=== PATIENT | female | born 1960 | race Caucasian/White ===

== ENCOUNTER 2022-06-10 13:49 | Emergency (ER) | payer MEDICARE ==
[2022-06-10] MEDS ORDERED: MORPHINE SULFATE 4 MG INJ IM ONE (14:27)
[2022-06-10] MEDS ORDERED: MORPHINE SULFATE 4 MG INJ ONE (14:32)
[2022-06-10 15:02] VITALS: BP 112/53; PULSE 74; O2SAT 99
--- NOTE | 2022-06-10 15:02 | XRAY ---
Indication: Pain. No known injury. Comparison: None 3 nonweightbearing views right foot demonstrates tiny plantar heel spur and tiny cuboid accessory ossicle. No other bony, articular, or soft tissue abnormalities.
--- NOTE | 2022-06-10 15:24 | ERPHSYRPT ---
- History of Present Illness Time Seen by Provider: 06/10/22 14:08 Source: patient Exam Limitations: no limitations Patient Subjective Stated Complaint: pt here for right foot pain for a couple days now, no injury, has neuropathy Triage Nursing Assessment: pt alert, resp easy, face mask in place, walked in, skin w.d.p, has swelling to top of right foot , no redness or warmth, nail beds pink Physician History: 61 years old female with multiple medical problems including diabetes mellitus with neuropathy, history of PE on Eliquis, anxiety, bipolar presented in the ER with chief complaint of right foot pain. Patient reports this as sharp burning pain which is exacerbated with movements and even touching with the sheets/use and at times having difficulty weightbearing as well. Denies any fall or trauma. Patient reported seems like right foot is swollen than the left 1. No fever or chills reported. Method of Injury: unknown Occurred: last week Quality: sharpness Severity of Pain-Max: severe Severity of Pain-Current: severe Lower Extremities Pain: foot: right Modifying Factors: Improves With: pain medication. Worsens With: movement Associated Symptoms: No snapping sensation, No popping sensation Allergies/Adverse Reactions: acetaminophen [From Darvocet-N 100] Allergy (Verified 06/10/22 13:58) propoxyphene [From Darvocet-N 100] Allergy (Verified 06/10/22 13:58) aspirin [From Excedrin Extra Strength] Adverse Reaction (Verified 06/10/22 13:58) caffeine [From Excedrin Extra Strength] Adverse Reaction (Verified 06/10/22 13:58) dextromethorphan [From NyQuil] Adverse Reaction (Verified 06/10/22 13:58) doxylamine [From NyQuil] Adverse Reaction (Verified 06/10/22 13:58) pseudoephedrine [From NyQuil] Adverse Reaction (Verified 06/10/22 13:58) Hx Tetanus, Diphtheria Vaccination/Date Given: No Hx Influenza Vaccination/Date Given: No Hx Pneumococcal Vaccination/Date Given: No Immunizations Up to Date: Yes Travel Risk - International Travel Have you traveled outside of the country in past 3 weeks: No - Coronavirus Screening Are you exhibiting any of the following symptoms?: No - Vaccine Status Have you recieved a Covid-19 vaccination: Yes 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: [employer] - Vaccination Dates Dates if Unknown: 2020 - Review of Systems Constitutional: Night Sweats Ears, Nose, & Throat: No Symptoms Respiratory: No Symptoms Cardiac: No Symptoms Genitourinary Symptoms: No Symptoms Musculoskeletal: Joint Pain Skin: No Symptoms Neurological: No Symptoms Psychological: No Symptoms Endocrine: No Symptoms Hematologic/Lymphatic: No Symptoms Immunological/Allergic: No Symptoms - Past Medical History Pertinent Past Medical History: Yes Neurological History: Peripheral Neuropathy, Other Endocrine Medical History: Diabetes Type II Musculoskeletal History: Degenerative Disk Disease Psycho-Social History: Bipolar Other Medical History: vertigo - Past Surgical History Past Surgical History: Yes Female Surgical History: Hysterectomy Other Surgical History: spinal cord stimulator - Social History Smoking Status: Never smoker Exposure to second hand smoke: No Drug Use: none Patient Lives Alone: No - Nursing Vital Signs Nursing Vital Signs: Initial Vital Signs Temperature 97.0 F 06/10/22 13:51 Pulse Rate 90 06/10/22 13:51 Respiratory Rate 18 06/10/22 13:51 Blood Pressure 123/74 06/10/22 13:51 O2 Sat by Pulse Oximetry 97 06/10/22 13:51 Pain Scale Pain Intensity 5 - Physical Exam General Appearance: no apparent distress, alert Neck Exam: normal inspection, full range of motion Cardiovascular/Respiratory Exam: normal breath sounds, regular rate/rhythm Back Exam: normal inspection, normal range of motion Hips Exam: bilateral: non-tender, normal inspection, normal range of motion Ankle Exam: bilateral ankle: non-tender, normal inspection, normal range of motion, no evidence of injury Foot Exam: right foot: bone tenderness, pain, soft tissue tenderness (Dorsum of foot), left foot: non-tender, bilateral foot: normal inspection, no evidence of injury Neuro/Tendon Exam: normal sensation, normal motor functions Mental Status Exam: alert, oriented x 3, cooperative Skin Exam: normal color SpO2 Interpretation: normal SpO2: 99 O2 Delivery: Room Air Ordered Tests: Active Orders 24 hr Category Date Time Status FOOT (MINIMUM 3 VIEWS) Stat Exams 06/10/22 14:00 Completed Medication Summary Discontinued Medications Generic Name Dose Route Start Last Admin Trade Name Freq PRN Reason Stop Dose Admin Morphine Sulfate 4 mg 06/10/22 14:27 06/10/22 14:32 Morphine Sulfate 4 Mg/Ml Injection IM 06/10/22 14:28 4 mg STAT ONE Administration Morphine Sulfate Confirm 06/10/22 14:32 Morphine Sulfate 4 Mg/Ml Injection Administered 06/10/22 14:33 Dose 4 mg .ROUTE .STK-MED ONE - Progress Progress: improved, pain not gone completely Progress Note: 06/10/22 15:24 61 years old is evaluated for worsening right foot pain. It seems more of a neuropathic pain. She is given morphine for symptomatic relief and x-rays are negative for acute fracture dislocation. Patient has been taking tramadol along with Neurontin but recently out of her tramadol which she is advised to get her refill from primary provider. Outpatient podiatry follow-up recommended. Discussed signs symptoms of worsening needing return to ER which she seems understanding. Counseled pt/family regarding: diagnosis, need for follow-up, rad results - Departure Departure Disposition: Home Clinical Impression: Acute foot pain, Neuropathy Condition: Stable Critical Care Time: No Referrals: DOCTOR,NO FAMILY [Primary Care Provider] - Follow up/PCP as directed EKATERINA BARAHONA DPM [ACTIVE STAFF] - Follow up/PCP as directed (Tomorrow for reevaluation) Instructions: Foot Sprain (DC) Additional Instructions: Continue with your Neurontin and take Tylenol along with left. Follow-up with podiatry for reevaluation. Get your pain medication filled by your primary provider.
== END 2022-06-10 15:35 | disposition home or self-care (01) ==
LOC: ED 13:49
DX: M79.671 Pain in right foot (principal); E11.42 Type 2 diabetes mellitus with diabetic polyneuropathy; Z79.01 Long term (current) use of anticoagulants
CPT/HCPCS: 73630; 96372; 99283; J2270